=== PATIENT | female | born 1975 ===

== ENCOUNTER → 2023-12-06 08:29 | Outpatient (CLI) | payer OTHER ==
[2023-12-06 10:53] LABS: % SATURACION 4.9 % (15-50); ALBUMIN 3.4 gm/dL (3.4-5.0); BILIRUBIN TOTAL 0.35 mg/dL (0.3-1.2); CALCIUM 8.7 mg/dL (8.5-10.1); CREATININE SERUM 0.72 mg/dL (0.55-1.02); FERRITIN 9.3 NG/ML (8-252); GFR 86.45; GLOBULINA 3.5 G/DL (2.4-3.5); POTASSIUM 3.95 mEq/L (3.5-5.1); TOTAL PROTEIN 6.9 gm/dL (6.4-8.2); TSH 1.62 uIU/mL (0.358-3.74)
[2023-12-06 11:15] LABS: FOLIC ACID > 20.00 ng/ml (4.78-20)
[2023-12-06 13:33] LABS: MANUAL PLATELET COUNT 800; PLATELET ESTIMATE INCREASED (NORMAL)
[2023-12-07 05:07] LABS: ANTI THYROID PEROXIDASE < 9 IU/mL (0-34)
[2023-12-07 07:11] LABS: TRANSFERIN 288 mg/dL (192-364)
[2023-12-08 15:09] LABS: INTRINSIC FACTOR BLOCKING AB 1.1 AU/mL (0.0-1.1)
[2023-12-08 17:05] LABS: g6pd quant 274 (127-427); rbc 4.78 x10E6/uL (3.77-5.28)
[2023-12-09 11:06] LABS: PARIETAL CELL ANTIBODIES 25.8 Units (0.0-20.0)
[2023-12-10 09:08] LABS: hgb a 64.6 % (96.4-98.8); hgb f 0 % (0.0-2.0); hgb s 32.4 % (0.0)
== END | disposition home or self-care (01) ==
LOC: LAB 08:29
PROVIDERS: ATTEND Internal Medicine Hematology & Oncology
DX: D57.3 Sickle-cell trait (principal); R79.9 Abnormal finding of blood chemistry, unspecified; I10 Essential (primary) hypertension; R74.02 Elevation of levels of lactic acid dehydrogenase [LDH]; K76.89 Other specified diseases of liver; D50.8 Other iron deficiency anemias; D55.0 Anemia due to glucose-6-phosphate dehydrogenase [G6PD] deficiency; D51.0 Vitamin B12 deficiency anemia due to intrinsic factor deficiency; E03.8 Other specified hypothyroidism; E06.3 Autoimmune thyroiditis

== ENCOUNTER 2024-02-15 08:38 | Outpatient (CLI) | payer OTHER ==
[2024-02-15 10:00] LABS: HEMATOCRIT 31.5 % (36.0-45.00); HEMOGLOBIN 10.1 g/dL (12.0-15.00); MEAN CORPUSCULAR HEMOGLOBIN 21.7 pg (27.00-32.0); MEAN CORPUSCULAR HGB CONC 32.1 g/dl (32.0-36.0); PLATELET COUNT 191 K/uL (150-450); RED BLOOD COUNT 4.66 M/uL (4.00-6.00); RED CELL DISTRIBUTION WIDTH 17.4 % (11.5-14.5)
[2024-02-15 10:03] LABS: MEAN CELL VOLUME 67.7 fL (80.00-100.00)
[2024-02-15 10:11] LABS: ALBUMIN 3.7 gm/dL (3.4-5.0); BILIRUBIN TOTAL 0.28 mg/dL (0.3-1.2); CALCIUM 8.5 mg/dL (8.5-10.1); CREATININE SERUM 0.66 mg/dL (0.55-1.02); GFR 95.59; GLOBULINA 3.2 G/DL (2.4-3.5); POTASSIUM 4.31 mEq/L (3.5-5.1); TOTAL PROTEIN 6.9 gm/dL (6.4-8.2)
[2024-02-15 10:12] LABS: PARTIAL THROMBOPLASTIN TIME 29.7 SECONDS (22.0-34.0); PROTHROMBIN TIME 10.9 SECONDS (9.0-11.5)
[2024-02-15 10:28] LABS: COL EPI 75 SECONDS (82-175)
== END 2024-02-15 10:15 | disposition home or self-care (01) ==
LOC: LAB 08:38
PROVIDERS: ATTEND Internal Medicine Hematology & Oncology
DX: D51.1 Vitamin B12 deficiency anemia due to selective vitamin B12 malabsorption with proteinuria (principal); D57.3 Sickle-cell trait; D50.8 Other iron deficiency anemias; D68.32 Hemorrhagic disorder due to extrinsic circulating anticoagulants; N80.00 Endometriosis of the uterus, unspecified; I10 Essential (primary) hypertension; K76.89 Other specified diseases of liver; D68.8 Other specified coagulation defects; D69.1 Qualitative platelet defects